=== PATIENT | male | born 2000 | race Two or more races ===

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

== ENCOUNTER 2025-06-01 01:18 | Inpatient (IN) | payer OTHER ==
[2025-06-01] MEDS ORDERED: ACETAMINOPHEN 325 MG TABLET (FP) ONE (02:08)
[2025-06-01] MEDS: ACETAMINOPHEN 325 MG TABLET (FP) PO ONE (02:09)
[2025-06-01 05:54] LABS: GLUCOSE,RANDOM 97.0 mg/dL (74-106); TOT PROT 8.1 g/dl (6.4-8.2)
[2025-06-01 05:55] LABS: CO2 23.0 mmol/L (21-32)
[2025-06-01 05:57] LABS: ALK PHOS 47.0 U/L (40-150)
[2025-06-01 06:00] LABS: CREATININE 0.73 mg/dL (0.55-1.3); SGOT/AST 34.0 U/L (5-34); SGPT/ALT 50.0 U/L (0-55)
[2025-06-01 06:38] LABS: ABSOLUTE IMMATURE GRANULOCYTES 0.04 x10^3/uL (0.0-0.031); BASOPHILS # 0.05 x10^3/uL (0.01-0.08); EOSINOPHIL % 0.1 % (0.8-7.0); EOSINOPHILS # 0.02 x10^3/uL (0.04-0.54); MCHC 32.4 g/dl (32.3-36.5); MEAN CELL VOLUME 80.9 fl (79.0-92.2); MEAN PLT VOLUME 11.0 fl (9.4-12.4); MONOCYTE # 0.75 x10^3/uL (0.30-0.82); MONOCYTE % 4.8 % (5.3-12.2); RDW 14.1 % (11.9-15.3)
[2025-06-01] MEDS: LACTATED RINGERS SOLUTION 1000 ML INFUS.BAG IV ONE (07:34)
[2025-06-01] MEDS ORDERED: PIPERACILLIN/TAZOB 4.5 GM 4.5 GM/100 ML BAG IVPB ONE (08:14)
[2025-06-01] MEDS: PIPERACILLIN/TAZOB 4.5 GM 4.5 GM in DEXTROSE 5%-WATER 100 ML IVPB ONE (08:25)
[2025-06-01 08:47] LABS: INR 1.07 (0.83-1.09); PROTHROMBIN TIME (PATIENT) 11.8 SEC (9.7-13.0)
[2025-06-01 08:49] LABS: ACTIVATED PTT 27.4 SECONDS (25.2-36.5)
[2025-06-01] MEDS ORDERED: ACETAMINOPHEN 1000 MG/100 ML BAG IVPB PRN ×2 (09:24→16:04)
[2025-06-01] MEDS: DEXTROSE 5%-LACTATED RINGERS 1,000 ML IV SCH (09:50)
[2025-06-01 12:13] VITALS: BMI 43.1
[2025-06-01] MEDS ORDERED: BUPIVACAINE HCL/PF 0.5% (5MG/ML) 10 ML VIAL ONE (13:52)
[2025-06-01] MEDS ORDERED: BUPIVACAINE HCL/PF 0.25% (2.5MG/ML) 10 ML VIAL ONE (14:20)
[2025-06-01] MEDS ORDERED: ROCURONIUM BROMIDE 50 MG/5 ML SYRINGE ONE ×2 (14:29→14:51)
[2025-06-01] MEDS ORDERED: PROPOFOL 40 ML ONE (14:29)
[2025-06-01] MEDS ORDERED: SUCCINYLCHOLINE CHLORIDE 200 MG/10 ML SYRINGE ONE (14:29)
[2025-06-01] MEDS ORDERED: DEXAMETHASONE SOD PHOSPHATE 4 MG/1 ML VIAL ONE (14:29)
[2025-06-01] MEDS ORDERED: MIDAZOLAM HCL 2 MG/2 ML SINGLE DOSE VIAL ONE (14:29)
[2025-06-01] MEDS ORDERED: ONDANSETRON 4 MG/2 ML VIAL ONE (14:29)
[2025-06-01] MEDS ORDERED: LIDOCAINE HCL/PF 2% SDV 5ML VIAL ONE (14:29)
[2025-06-01 14:36] LABS: EPI CELLS 5 /uL (0-25.1); HYALINE CASTS 0 /uL (0-3.1); URINE APPEARANCE CLEAR; URINE BACTERIA 12 /uL (0-1359); URINE BILIRUBIN NEGATIVE (NEGATIVE); URINE COLOR YELLOW; URINE GLUCOSE (UA) NEGATIVE (NEGATIVE); URINE KETONE NEGATIVE (NEGATIVE); URINE LEUK ESTERASE TRACE (NEGATIVE); URINE NITRITE NEGATIVE (NEGATIVE); URINE PROTEIN NEGATIVE (NEGATIVE); URINE RBC 15 /uL (0-23.9); URINE UROBILINOGEN 0.2 mg/dL (0.2-1.0); URINE WBC 48 /uL (0-25.8)
[2025-06-01] MEDS ORDERED: ONDANSETRON 4 MG/2 ML VIAL IVPUSH PRN ×2 (14:36→16:04)
[2025-06-01] MEDS ORDERED: PROMETHAZINE HCL 25 MG/1 ML VIAL IVPB PRN ×2 (14:36→16:04)
[2025-06-01] MEDS ORDERED: LACTATED RINGERS SOLUTION 1,000 ML IV SCH (14:45)
[2025-06-01] MEDS ORDERED: SUGAMMADEX SODIUM 200 MG/2 ML VIAL ONE ×2 (14:50→16:02)
[2025-06-01] MEDS ORDERED: SEVOFLURANE 250 ML BTL ONE (14:57)
[2025-06-01] MEDS: cefOXitin SODIUM 1 GM VIAL (RESTRICTED TO ID) IVPB ONE (15:02)
[2025-06-01] MEDS: BUPIVACAINE HCL/PF 0.25% (2.5MG/ML) 10 ML VIAL IJ ONE (15:14)
[2025-06-01] MEDS: LACTATED RINGERS SOLUTION 1,000 ML IV SCH (16:59)
[2025-06-01] MEDS: KETOROLAC TROMETHAMINE 15 MG/ML VIAL IVPUSH SCH (17:15)
[2025-06-01] MEDS ORDERED: KETOROLAC TROMETHAMINE 30 MG/1 ML VIAL ONE (17:19)
[2025-06-02 07:29] VITALS: BP 115/65; PULSE 101; RESP 18; TEMP 98.4
[2025-06-02 08:34] LABS: ABSOLUTE IMMATURE GRANULOCYTES 0.04 x10^3/uL (0.0-0.031); BASOPHILS # 0.02 x10^3/uL (0.01-0.08); EOSINOPHIL % 0.0 % (0.8-7.0); EOSINOPHILS # 0.00 x10^3/uL (0.04-0.54); MCHC 32.5 g/dl (32.3-36.5); MEAN CELL VOLUME 81.3 fl (79.0-92.2); MEAN PLT VOLUME 11.2 fl (9.4-12.4); MONOCYTE # 0.85 x10^3/uL (0.30-0.82); MONOCYTE % 8.2 % (5.3-12.2); RDW 14.1 % (11.9-15.3)
[2025-06-02 08:41] LABS: INR 1.18 (0.83-1.09); PROTHROMBIN TIME (PATIENT) 12.9 SEC (9.7-13.0)
[2025-06-02 09:14] LABS: GLUCOSE,RANDOM 71.0 mg/dL (74-106)
[2025-06-02 09:15] LABS: TOT PROT 7.4 g/dl (6.4-8.2)
[2025-06-02 09:16] LABS: CO2 21.0 mmol/L (21-32)
[2025-06-02 09:17] LABS: ALK PHOS 38.0 U/L (40-150)
[2025-06-02 09:20] LABS: SGOT/AST 33.0 U/L (5-34); SGPT/ALT 38.0 U/L (0-55)
[2025-06-02 11:09] LABS: CREATININE 0.66 mg/dL (0.55-1.3)
== END 2025-06-02 14:21 | disposition home or self-care (01) | DRG 225 ==
LOC: JER 01:18 → JERBED 08:35 → J7W 11:42
PROVIDERS: ADMIT Student in an Organized Health Care Education/Training Program; ATTEND Internal Medicine
PROC: 0DTJ4ZZ Resection of Appendix, Percutaneous Endoscopic Approach (ICD-10-PCS; principal; 2025-06-01 14:30)
DX: K35.33 Acute appendicitis with perforation, localized peritonitis, and gangrene, with abscess (principal); Z68.41 Body mass index [BMI] 40.0-44.9, adult; E66.01 Morbid (severe) obesity due to excess calories; K59.00 Constipation, unspecified; R10.31 Right lower quadrant pain
CPT/HCPCS: 36415; 74018-TC-FY; 74177-TC; 80053; 81003; 83690; 83735; 84100; 85025; 85610; 85730; 86850; 86900; 86901; 88304-TC; 93005; 93010; 94760; 99285-25; Q9967